=== PATIENT | female | born 2000 | race African-American/Black ===

== ENCOUNTER 2020-05-19 07:49 | Day surgery (SDC) | payer MEDICAID, SELFPAY ==
[~2020-05-19] VITALS: Ht 172.7 cm; Wt 61.2 kg
[2020-05-19] MEDS ORDERED: fentaNYL CITRATE/PF 100 MCG/2 ML AMP ONE (08:03)
[2020-05-19] MEDS ORDERED: SIMETHICONE 40 MG/0.6 ML ML ONE (08:03)
[2020-05-19] MEDS ORDERED: MIDAZOLAM HCL 5 MG/5 ML VIAL ONE (08:04)
[2020-05-19 08:26] LABS: HCG,QUAL RESULT NEGATIVE (NEGATIVE)
[2020-05-19] MEDS ORDERED: DIPHENHYDRAMINE INJ 50 MG/ML VIAL ONE (10:27)
[2020-05-19] MEDS ORDERED: MEPERIDINE 100 MG INJ. 100 MG/ML VIAL ONE (10:27)
[2020-05-19] MEDS: DIPHENHYDRAMINE INJ 50 MG/ML VIAL IVP ONE (10:31)
[2020-05-19] MEDS: MIDAZOLAM HCL 5 MG/5 ML VIAL IVP ONE ×2 (10:31→10:37)
[2020-05-19] MEDS: MEPERIDINE 100 MG INJ. 100 MG/ML VIAL IV ONE (10:31)
[2020-05-19 14:14] VITALS: BP_SYST 121
== END 2020-05-19 11:55 | disposition home or self-care (01) ==
LOC: SMU 07:49 → SDS 07:49
PROVIDERS: ATTEND Internal Medicine
DX: K92.0 Hematemesis (principal); K29.50 Unspecified chronic gastritis without bleeding; Z79.899 Other long term (current) drug therapy
CPT/HCPCS: 36415 ×2; 43239; 84703; 87081; 87426; 88305; 88312; 88313; 99152; G0378; J1200; J2175; J2250; J7030; J3010